=== PATIENT | male | born 1965 | race Caucasian/White ===

== ENCOUNTER 2021-12-26 14:15 | Emergency (ER) | payer OTHER ==
[2021-12-26] MEDS ORDERED: Aspirin 81 MG Tab.Chew PO ONE (17:55)
[2021-12-26] MEDS ORDERED: Heparin Sodium 5,000 Units/ML Vial IVPUSH ONE (18:12)
[2021-12-26] MEDS ORDERED: Heparin Sodium/D5W 25,000 UNITS/500 ML BAG IV SCH (18:15)
== END 2021-12-26 22:12 | disposition home or self-care (01) ==
LOC: JP.ED 14:15
DX: I21.4 Non-ST elevation (NSTEMI) myocardial infarction (principal); R00.2 Palpitations; R00.0 Tachycardia, unspecified; E78.00 Pure hypercholesterolemia, unspecified; Z20.822 Contact with and (suspected) exposure to COVID-19
CPT/HCPCS: 36415; 71045; 80048; 83880; 84443; 84484; 85025; 85379; 85651; 87635; 93005; 96365; 96376; 99285; A9270; J1644; U0002